=== PATIENT | female | born 1950 | race Caucasian/White ===

== ENCOUNTER 2019-04-15 14:52 | Emergency (ER) | payer MEDICARE ==
[~2019-04-15] VITALS: Ht 167.6 cm; Wt 57.2 kg
--- NOTE | 2019-04-15 15:38 | PHYS DOC ---
Past History Past Medical History: COPD, Hypertension Past Surgical History: No Surgical History Smoking: Cigarettes Alcohol Use: None Drug Use: None Adult General Chief Complaint Chief Complaint: HAND PROBLEM [facility] HPI Patient is a 88-year-old female presents with left hand pain around the base of the index finger. This was first noted this morning. Patient does not recall any fall or trauma. However, patient does sleepwalk. Patient was seen at an urgent care and had x-rays performed. She reports that they tried to reset what was out of place but were unable to at the urgent care. Patient denies any numbness. Increased pain with movement. No improvement with ibuprofen. Pain is moderate to severe in intensity. She notes redness around the base of the index finger.[] Review of Systems Review of Systems Constitutional: Denies fever or chills [] Eyes: Denies change in visual acuity, redness, or eye pain [] HENT: Denies nasal congestion or sore throat [] Respiratory: Denies cough or shortness of breath [] Cardiovascular: No additional information not addressed in HPI [] GI: Denies abdominal pain, nausea, vomiting, bloody stools or diarrhea [] : Denies dysuria or hematuria [] Musculoskeletal: Denies back pain, see history of present illness[] Integument: Denies rash or skin lesions [] Neurologic: Denies headache, focal weakness or sensory changes [] Endocrine: Denies polyuria or polydipsia [] All other systems were reviewed and found to be within normal limits, except as documented in this note. Allergies Allergies Allergies Coded Allergies Type Severity Reaction Last Updated Verified Penicillins Allergy Unknown 04/15/19 Yes cephalexin Allergy Unknown 04/15/19 Yes erythromycin base Allergy Unknown 04/15/19 Yes Physical Exam Physical Exam Constitutional: Well developed, well nourished, no acute distress, non-toxic appearance. [] HENT: Normocephalic, atraumatic, bilateral external ears normal, oropharynx moist, no oral exudates, nose normal. [] Eyes: PERRLA, EOMI, conjunctiva normal, no discharge. [] Neck: Normal range of motion, no tenderness, supple, no stridor. [] Cardiovascular:Heart rate regular rhythm, no murmur [] Lungs & Thorax: Bilateral breath sounds clear to auscultation [] Abdomen: Not examined[] Skin: Warm, dry, no erythema, no rash. [] Back: No tenderness, no CVA tenderness. [] Extremities: Left hand has deformity at the index finger MCP joint, with the index finger being deviated ulnarly. There is erythema at the base of the index finger/in the MCP region. No significant edema. FDS, FDP, and extensor mechanisms are intact. Active range of motion is diminished at the MCP joint. Patient is distal neurovascularly intact. A joint above and a joined below this area were evaluated and were normal. The other 3 extremities show: No tenderness, no cyanosis, no clubbing, ROM intact, no edema. [] Neurologic: Alert and oriented X 3, normal motor function, normal sensory function, no focal deficits noted. [] Psychologic: Affect normal, judgement normal, mood normal. [] Current Patient Data Vital Signs Vital Signs Date Time Temp Pulse Resp B/P (MAP) Pulse Ox O2 Delivery O2 Flow Rate FiO2 04/15/19 15:06 98.0 100 16 98 Room Air EKG EKG [] Radiology/Procedures Radiology/Procedures PROCEDURE: HAND LEFT 3V Examination: 3 views of the left hand HISTORY: History of pain, deformity of the index finger COMPARISON: None available. Findings/ impression: There is dorsal and medial dislocation of the proximal phalanx of the second digit in relation to the second metacarpal head. There is cortical step-off identified in the neck of the third metacarpal probably fracture. Correlate for point tenderness[] Course & Med Decision Making Course & Med Decision Making Pertinent Labs and Imaging studies reviewed. (See chart for details) ED course: Patient arrived, was placed in bed, and tolerated exam well. She was transported to and [place] without any complications. The dislocation of the index finger was reduced utilizing 3 mm of lidocaine, the finger was bent dorsally at the MCP joint and traction was applied. The reduction was successful. Post reduction film shows no evidence of continued dislocation. Patient had no tenderness to palpation of the third metacarpal. A splint was applied covering both the index and third finger given the x-ray findings. Patient was distal neurovascularly intact after the splint was applied. She was discharged in improved condition. Medical decision making: There is no evidence of continued dislocation. No evidence of FDS, FDP, nor extensor mechanism injury. No evidence of neurologic compromise nor vascular compromise. Patient lives in [place], making a disc of the x-ray findings for her to take with her to her local care team.[] Dragon Disclaimer Dragon Disclaimer This electronic medical record was generated, in whole or in part, using a voice recognition dictation system. Departure Departure: Impression: Primary Impression: Closed dislocation of left index finger Disposition: HOME, SELF-CARE Condition: IMPROVED Referrals: PCP,NO (PCP) Patient Instructions: Cast or Splint Care, Finger Dislocation, Finger Fracture Additional Instructions: Follow-up with your regular doctor when you get home to [place]. Return to the ER if worsening pain, swelling, numbness, or any other concerns. Keep the splint clean and dry Scripts Hydrocodone Bit/Acetaminophen (NORCO 5-325 TABLET) 1 Each Tablet 1-2 TAB PO Q4-6HRS for severe pain, #20 TAB Prov: NGUYỄN CARRILLO DO 04/15/19 Meloxicam (MELOXICAM) 7.5 Mg Tablet 7.5 MG PO DAILY for PAIN, #20 TAB Prov: NGUYỄN CARRILLO DO 04/15/19 NGUYỄN CARRILLO DO April 15, 2019 15:38
[2019-04-15] MEDS ORDERED: LIDOCAINE 1% Multi-Dose 20 ML VIAL. IJ ONE (16:00)
--- NOTE | 2019-04-15 16:01 | RAD ---
Examination: 3 views of the left hand HISTORY: History of pain, deformity of the index finger COMPARISON: None available. Findings/ impression: There is dorsal and medial dislocation of the proximal phalanx of the second digit in relation to the second metacarpal head. There is cortical step-off identified in the neck of the third metacarpal probably fracture. Correlate for point tenderness Electronically signed by: Minh Pond MD (04/15/2019 3:58 PM) [facility]
[2019-04-15] MEDS ORDERED: HYDR-3165 PO (16:39)
[2019-04-15] MEDS ORDERED: MELO7.5T29 PO (16:39)
[2019-04-15 16:40] VITALS: BP 141/84
--- NOTE | 2019-04-16 01:57 | RAD ---
Left hand 3 views. HISTORY: Post reduction 3 views were taken of the left hand. There has been reduction of the dislocation at the second metacarpal phalangeal joint. The hand is in a splint. There is a fracture of the head of the third metacarpal without change in position. IMPRESSION: 1. Reduction of previous dislocation at the second metacarpal phalangeal joint. 2. No change fracture head of the third metacarpal. Electronically signed by: Anival Khan MD (04/16/2019 1:54 AM) [facility]
== END 2019-04-15 16:46 | disposition home or self-care (01) ==
LOC: ER 14:52
DX: S63.261A Dislocation of metacarpophalangeal joint of left index finger, initial encounter (principal); J44.9 Chronic obstructive pulmonary disease, unspecified; I10 Essential (primary) hypertension; F17.210 Nicotine dependence, cigarettes, uncomplicated; Z88.0 Allergy status to penicillin; Z88.1 Allergy status to other antibiotic agents; X58.XXXA Exposure to other specified factors, initial encounter; Y93.89 Activity, other specified; Y92.89 Other specified places as the place of occurrence of the external cause; Y99.8 Other external cause status
CPT/HCPCS: 26700; 73130; 99284